=== PATIENT | female | born 1950 ===

== ENCOUNTER → 2017-11-17 | Outpatient (CLI) | payer BC | END | disposition home or self-care (01) | LOC: OLS 15:34 → LAB SHORT 15:34 | PROVIDERS: Nurse Practitioner Women's Health | DX: Z12.4 Encounter for screening for malignant neoplasm of cervix (principal) | CPT/HCPCS: 87624; G0123 ==

== ENCOUNTER → 2018-11-22 | Outpatient (CLI) | payer BC ==
[2018-11-27 08:08] LABS: HPV 16 Negative (Negative); HPV 18 Negative (Negative); HPV OTHER HR TYPES Negative (Negative)
== END | disposition home or self-care (01) ==
LOC: LAB SHORT 17:38 → LAB 17:38
PROVIDERS: Nurse Practitioner Women's Health
DX: Z12.4 Encounter for screening for malignant neoplasm of cervix (principal); Z91.89 Other specified personal risk factors, not elsewhere classified
CPT/HCPCS: 87624; G0123

== ENCOUNTER → 2022-11-10 | Outpatient (CLI) | payer OTHER ==
[2022-11-10 18:54] LABS: Free Thyroxine 1.18 ng/dL (0.70-1.60)
[2022-11-10 18:59] LABS: Bun/Creatinine Ratio 19.5 (12.0-20.0); Calcium, Blood 9.2 mg/dL (8.5-10.1); Creatinine, Blood 0.98 mg/dL (0.40-1.00); Potassium, Blood 4.4 mmol/L (3.5-5.5); Thyroid Stimulating Hormone 3.03 uIU/mL (0.360-4.800)
== END | disposition home or self-care (01) ==
LOC: LAB SHORT 13:47 → LAB 13:47
PROVIDERS: Nurse Practitioner Family
DX: N18.31 Chronic kidney disease, stage 3a (principal); E03.9 Hypothyroidism, unspecified; E87.1 Hypo-osmolality and hyponatremia
CPT/HCPCS: 80048; 83970; 84439; 84443

== ENCOUNTER → 2023-03-01 | Outpatient (CLI) | payer OTHER ==
[2023-03-01 17:03] LABS: Free Thyroxine 1.21 ng/dL (0.70-1.60); Thyroid Stimulating Hormone 2.6 uIU/mL (0.360-4.800)
[2023-03-01 17:07] LABS: Albumin, Blood 3.6 g/dL (3.4-5.0); Albumin/Globulin Ratio 1.3 (0.8-1.8); Bilirubin, Total 0.5 mg/dL (0.1-1.0); Bun/Creatinine Ratio 14.5 (12.0-20.0); Calcium, Blood 9.1 mg/dL (8.5-10.1); Creatinine, Blood 1.1 mg/dL (0.40-1.00); Globulin, Blood 2.8 g/dL (2.2-4.0); Potassium, Blood 4.4 mmol/L (3.5-5.5); Total Protein, Blood 6.4 g/dL (6.4-8.2)
== END | disposition home or self-care (01) ==
LOC: LAB 14:43 → LAB SHORT 14:43 → LAB FUT 02-29 15:00 → EDSTATUS 02-29 15:00
PROVIDERS: Nurse Practitioner Family
DX: N18.31 Chronic kidney disease, stage 3a (principal); E03.9 Hypothyroidism, unspecified
CPT/HCPCS: 80053; 84439; 84443

== ENCOUNTER → 2023-05-19 | Outpatient (CLI) | payer OTHER ==
[2023-05-19 17:50] LABS: U Amphetamine Screen Not Detected; U Barbituate Screen Not Detected; U Benzodiazapine Screen DETECTED; U Buprenorphine Screen Not Detected; U Cannabinoids Screen Not Detected; U Cocaine Screen Not Detected; U Methadone Screen Not Detected; U Methamphetamine Screen Not Detected; U Opiates Screen Not Detected; U Oxycodone Screen Not Detected; U Phencyclidine Screen Not Detected
== END ==
LOC: LAB SHORT 16:15 → LAB 16:15
PROVIDERS: Nurse Practitioner Family
DX: Z79.899 Other long term (current) drug therapy (principal)

== ENCOUNTER 2023-06-16 09:59 | Day surgery (SDC) | payer OTHER ==
[2023-06-16] VITALS (9 sets, daily range): BP systolic 109–128; BP diastolic 58–74
[~2023-06-16] VITALS: Ht 172.7 cm; Wt 84.4 kg
[~2023-06-16 09:59] MED LIST: ATOR10 PO; BETA.05TCA TOP; FLUTICASONE-SA1 EAC1 INH; LEVSOD112 PO; LOSA25 PO; METO5A PO; MIACALCIN200 UNIT/1; Oxazepam10 MG PO; PROG100 PO; SODCHL1
[2023-06-16] MEDS ORDERED: ESTRADIOL1 EAC2 TOP (11:20)
--- NOTE | 2023-06-16 11:25 | NUR ---
Ambulatory in Day Surgery USING CANE. History, Chart, Medications and Allergies reviewed before start of procedure.Lungs clear T/O to Auscultation. Patient confirms NPO status and agrees with scheduled surgery. Pre-Op teaching done. Pt verbalizes understanding. Patient States Post-Procedure ride home has been arranged.
--- NOTE | 2023-06-16 15:34 | NUR ---
Patient up to Ambulate independently. Gait steady. Discharge instructions reviewed with patient. Patient verbalizes understanding. Copy given to patient to take home, [facility]. Patient States Post-Procedure ride home has been arranged. Discharged via wheelchair to private car for ride home. PT REPORTS ABLE TO VOID PRIOR TO DISCHARGE.
== END 2023-06-16 15:34 | disposition home or self-care (01) ==
LOC: ORSCMMR 09:59 → ORD 11:30 → ORSCMMR 11:30
PROVIDERS: Obstetrics & Gynecology
PROC: 0UDB8ZX Extraction of Endometrium, Via Natural or Artificial Opening Endoscopic, Diagnostic (ICD-10-PCS; principal; 2023-06-16 13:00)
DX: N95.0 Postmenopausal bleeding (principal); N84.0 Polyp of corpus uteri; N88.2 Stricture and stenosis of cervix uteri; E78.5 Hyperlipidemia, unspecified; E03.9 Hypothyroidism, unspecified; Z79.899 Other long term (current) drug therapy
CPT/HCPCS: 88305; J0690; J1100; J2250; J2405; J2704; J3010; J7120